=== PATIENT | male | born 1960 | race Caucasian/White ===

== ENCOUNTER 2017-10-06 09:28 | Emergency (ER) | payer OTHER ==
[~2017-10-06] VITALS: Ht 188 cm; Wt 113.4 kg
[2017-10-06 09:28] VITALS: BP 113/69
== END 2017-10-06 10:19 | disposition home or self-care (01) ==
LOC: ER 09:31
DX: S50.01XA Contusion of right elbow, initial encounter (principal); V19.88XA Pedal cyclist (driver) (passenger) injured in other specified transport accidents, initial encounter; Y93.55 Activity, bike riding; Y92.89 Other specified places as the place of occurrence of the external cause; Y99.8 Other external cause status
CPT/HCPCS: 73080-TC; 73090-TC; A4606; Z7610